=== PATIENT | male | born 1960 | race Caucasian/White ===

== ENCOUNTER 2023-07-07 17:54 | Emergency (ER) | payer BC ==
[~2023-07-07] VITALS: Ht 182.9 cm; Wt 74.0 kg
[~2023-07-07 17:54] MED LIST: CYMBALTA30 MG PO; PERCOCET 5/325M1 TAB PO; TRICOR145 MG PO
[2023-07-07 18:02] VITALS: BP 132/84
[2023-07-07] MEDS ORDERED: OMNI-PAC300 MG PO (19:05)
[2023-07-07 20:02] VITALS: BP 122/80
[2023-07-07 20:10] VITALS: BP 122/80
== END 2023-07-07 20:10 | disposition home or self-care (01) | DRG 605 ==
LOC: ED 17:54
PROC: 0RSJXZZ Reposition Right Shoulder Joint, External Approach (ICD-10-PCS; principal; 2023-07-07)
PROC: 0HQ1XZZ Repair Face Skin, External Approach (ICD-10-PCS; 2023-07-07)
DX: S01.81XA Laceration without foreign body of other part of head, initial encounter (principal); S43.014A Anterior dislocation of right humerus, initial encounter; S51.811A Laceration without foreign body of right forearm, initial encounter; S80.812A Abrasion, left lower leg, initial encounter; I10 Essential (primary) hypertension; F17.200 Nicotine dependence, unspecified, uncomplicated; W11.XXXA Fall on and from ladder, initial encounter